=== PATIENT | female | born 1975 | race Caucasian/White ===

== ENCOUNTER → 2020-11-08 | Outpatient (CLI) | payer OTHER ==
[~2020-11-08] MED LIST: ALBUTEROL1.25 MG/3 INH; BUSPIRONE HCL15 MG PO; COLACE100 MG PO; ESTRADIOL1 MG PO; IBUPROFEN600 MG PO; KEFLEX500 MG PO; LEVOTHYROXINE100 MCG PO; MESALAMINE1000 MG PR; NABUMETONE500 MG PO; NORCO 10-325 T1 EACH PO; NORCO 5-325 TA1 EACH PO; NORCO 7.5-3251 EACH PO; SIMVASTATIN20 MG PO; TAMIFLU75 MG PO; VOLTAREN100 GM TP
== END ==
LOC: KOH-I 12:13
DX: M54.5 Low back pain (principal); M47.816 Spondylosis without myelopathy or radiculopathy, lumbar region
CPT/HCPCS: 72148